=== PATIENT | male | born 1990 | race Hispanic/Latino ===

== ENCOUNTER 2023-08-15 22:51 | Emergency (ER) | payer OTHER ==
[~2023-08-15] VITALS: Ht 182.9 cm; Wt 88.9 kg
[2023-08-16 00:23] VITALS: BP 166/100; PULSE 99; RESP 18; O2SAT 100
== END 2023-08-16 01:20 | disposition home or self-care (01) ==
LOC: EDH 22:51
DX: S00.83XA Contusion of other part of head, initial encounter (principal); S00.81XA Abrasion of other part of head, initial encounter; W18.39XA Other fall on same level, initial encounter; Y93.89 Activity, other specified; Y92.89 Other specified places as the place of occurrence of the external cause; Y99.8 Other external cause status
CPT/HCPCS: 70450; 72125